=== PATIENT | female | born 1990 | race Caucasian/White ===

== ENCOUNTER → 2022-05-05 | Day surgery (SDC) | payer OTHER ==
[~2022-05-05] VITALS: Ht 162.6 cm; Wt 92.1 kg
[~2022-05-05] MED LIST: COLACE100 MG PO; PERCOCET 5/325 T1 EA PO; PROAIR HFA8.5 GM INH; UBRELVY100 MG PO
== END | disposition home or self-care (01) ==
LOC: OR 06:23
DX: K64.8 Other hemorrhoids (principal); E66.01 Morbid (severe) obesity due to excess calories; Z88.1 Allergy status to other antibiotic agents
CPT/HCPCS: J1100; J1170; J1885; J2001; J2250; J2370; J2405; J2704; J3010; J7040